=== PATIENT | male | born 1965 | race Caucasian/White ===

== ENCOUNTER 2017-09-21 13:43 | Emergency (ER) | payer MEDICAID ==
[~2017-09-21] VITALS: Ht 175.3 cm; Wt 72.8 kg
[~2017-09-21 13:43] MED LIST: CLIN-5 PO; DOCU-28 PO; HYDR-565 PO
[2017-09-21] MEDS ORDERED: TOLN108P2 TP (17:07)
[2017-09-21 17:19] VITALS: BP 128/68
== END 2017-09-21 17:25 | disposition home or self-care (01) ==
LOC: ER 13:43
DX: K40.90 Unilateral inguinal hernia, without obstruction or gangrene, not specified as recurrent (principal); L08.9 Local infection of the skin and subcutaneous tissue, unspecified; M79.674 Pain in right toe(s); Z86.14 Personal history of Methicillin resistant Staphylococcus aureus infection; F15.90 Other stimulant use, unspecified, uncomplicated; Z79.899 Other long term (current) drug therapy; Z56.0 Unemployment, unspecified; Z59.0 Homelessness; Z60.2 Problems related to living alone
CPT/HCPCS: 10060; 99283; A6255; A6449

== ENCOUNTER 2017-11-07 13:57 | Emergency (ER) | payer MEDICAID ==
[~2017-11-07 13:57] MED LIST changes: +TOLN108P2 TP
== END 2017-11-07 17:15 | disposition left against medical advice (07) ==
LOC: ER 13:58
DX: Z00.01 Encounter for general adult medical examination with abnormal findings (principal); Z53.21 Procedure and treatment not carried out due to patient leaving prior to being seen by health care provider